=== PATIENT | male | born 1935 | race Caucasian/White ===

== ENCOUNTER → 2020-06-17 11:19 | Outpatient (BNVA) | payer MEDICARE, OTHER, SELFPAY | PROVIDERS: PCP Family Medicine; Visit Provider Specialist | DX: G56.01 Carpal tunnel syndrome, right upper limb (principal); G56.11 Other lesions of median nerve, right upper limb | CPT/HCPCS: 95908 ==

== ENCOUNTER → 2020-08-08 12:37 | Outpatient (BNVA) | payer MEDICARE, OTHER, SELFPAY | PROVIDERS: PCP Family Medicine; Visit Provider Orthopaedic Surgery | DX: Z01.812 Encounter for preprocedural laboratory examination (principal); Z20.828 Contact with and (suspected) exposure to other viral communicable diseases | CPT/HCPCS: 87635 ==

== ENCOUNTER 2020-08-13 05:51 | Day surgery (SDC) | payer MEDICARE, OTHER, SELFPAY ==
[2020-08-12 11:08] VITALS: BMI 25.7
[2020-08-13 06:19] VITALS: BP 132/73; PULSE 69; RESP 16; TEMP 36.6; O2SAT 98
[2020-08-13 06:45] LABS: Glucose Point of Care 130 mg/dL (70-110)
--- NOTE | 2020-08-13 06:55 | W.PM.OPSUD ---
Surgery/Procedure H&P Update DATE OF PROCEDURE: August 13, 2020 PREOP DIAGNOSIS: Right carpal tunnel syndrome PLANNED PROCEDURE: Operation Date: 08/13/20 07:00 Proposed Procedures p right Carpal Tunnel Release [id number] g56.01(Right) - Raul Zaidi MD
--- NOTE | 2020-08-13 06:56 | W.PM.OPSFHP ---
Same Day Surgery H&P Indication for Procedure/HPI DATE OF PROCEDURE: August 13, 2020 CHIEF COMPLAINT/INDICATIONFOR SURGICAL PROCEDURE: 85-year-old male with numbness and pain to right hand. EMG nerve conduction studies with severe carpal tunnel syndrome PREOP DIAGNOSIS: Right carpal tunnel syndrome PLANNED PROCEDRUE: Operation Date: 08/13/20 07:00 Proposed Procedures p right Carpal Tunnel Release 46520 g56.01(Right) - Raul Zaidi MD Medications/Allergies* Home Medications Medication Instructions Recorded Confirmed Type aspirin 81 mg tablet,delayed 81 mg PO DAILY 09/10/19 08/12/20 History release atorvastatin 10 mg tablet 10 mg PO DAILY 09/10/19 08/12/20 History fluticasone propionate 50 2 spray INTRANASAL DAILY PRN 09/10/19 08/12/20 History mcg/actuation nasal spray,suspension loratadine 10 mg tablet 10 mg PO DAILY PRN 09/10/19 08/12/20 History metformin 1,000 mg tablet 1,000 mg PO BID 09/10/19 08/12/20 History multivitamin 1 tab PO DAILY 09/10/19 08/12/20 History mupirocin 2 % topical ointment 1 applic TOPICAL BID PRN 09/10/19 08/12/20 History omeprazole 20 mg capsule,delayed 20 mg PO DAILY cap 03/11/20 08/12/20 History release sildenafil (pulm.hypertension) 20 60 mg PO .prn PRN tab 08/03/20 08/12/20 History mg tablet Allergies/Adverse Reactions Allergy/AdvReac Type Severity Reaction Status Date / Time diphenhydramine Allergy Unknown unknown Verified 08/03/20 10:04 [From Benadryl] Iodine and Iodide Containing Allergy Unknown hives Verified 08/03/20 10:04 Produc niacin Allergy Unknown unknown Verified 08/03/20 10:04 [From Niaspan Extended-Release] Pertinent History/Comorbid Conditions* Medical History (Updated 06/18/20 @ 18:07 by Liz Romero MD) Aortic regurgitation The most recent echocardiogram was done in February 2017. At that time he had features of aortic or sclerosis with a trace of aortic regurgitation Atypical chest pain Chronic kidney disease Hyperlipidemia Hypertension Ventricular arrhythmia Surgical History (Updated 09/10/19 @ 12:18 by Garret Forte MD) Hx of cataract surgery Family History (Updated 08/03/20 @ 10:11 by Sangita Silva RN) Diabetes Grandmother Dementia Mother Chronic kidney disease (CKD) Father Anesthesia complication Mother Lung disease Father Cancer Father Hypertension Denies family history of CAD (coronary artery disease) Clotting disorder Suicide Bleeding disorder Stroke Social History Smoking and tobacco status: never smoked Alcohol intake: current Alcohol intake frequency: holidays/special occasions only Pertinent Exam Findings alert, oriented x 3, clear to auscultation bilaterally, regular rate & rhythm and operative site marked Recommendations Surgery/Procedure today Coding Level of Care Code Acute Packing Machine Tender for Eliazar Desai
[2020-08-13] MEDS: sodium chloride 0.9% 1,000 ML 30 ML IV (07:00)
--- NOTE | 2020-08-13 07:02 | ANES.PREANE2 ---
Pre-Anesthetic Assessment Pre-Anesthetic Assessment: Height/Weight: Height 1.65 m Weight 70.307 kg Temp Pulse Resp BP Pulse Ox 97.9 F 69 16 132/73 98 08/13/20 06:19 08/13/20 06:19 08/13/20 06:19 08/13/20 06:19 08/13/20 06:19 Preop Diagnosis: Right carpal tunnel syndrome Proposed Procedure: Operation Date: 08/13/20 07:00 Proposed Procedures p right Carpal Tunnel Release [id number] g56.01(Right) - Raul Zaidi MD Was Beta Vick taken within 24 hours: Yes Last intake: Intake Last Liquid Date 08/12/20 Last Liquid Time 22:00 Last Solid Date 08/12/20 Last Solid Time 18:00 Social: Social History: Alcohol and No tobacco Exam: Pre-Anes Outpt Exam: alert, oriented x 3, clear to auscultation bilaterally and regular rate & rhythm Airway: Submandibular: WNL Cervical ROM: WNL MP: 1 Dentition: Partials Additional comments: poor dentition Pulmonary: Pulmonary: None reported CV/HEM: CV/HEM: Arrythmia and HTN Comments: aortic regurgitation, patient denies chest pain, Dr. carrillo visited recently : : Chronic renal Insufficiency Hepatic: Hepatic: None reported GI: GI: GERD (controlled) Metabolic: Metabolic: DM (type II metformin controlled ) and Hyperlipidemia Musc/skel: Musc/skel: Lower Back Pain and OA/DJD Anesthetic Plan: ASA status: 3 Anesthesia: MAC and Regional (specify below) Risk of > 500 ml blood loss (7ml/kg in children): No PFSH Anesthesia PFSH: Medical History Aortic regurgitation The most recent echocardiogram was done in February 2017. At that time he had features of aortic or sclerosis with a trace of aortic regurgitation Atypical chest pain Chronic kidney disease Hyperlipidemia Hypertension Ventricular arrhythmia Surgical History Hx of cataract surgery Family History Mother Anesthesia complication Dementia Father Cancer Chronic kidney disease (CKD) Lung disease Grandmother Diabetes Other Hypertension Denies family history of CAD (coronary artery disease) Clotting disorder Suicide Bleeding disorder Stroke Social History Smoking and tobacco status: never smoked Alcohol intake: current Alcohol intake frequency: holidays/special occasions only Data Anesthesia Other Labs: Laboratory Results - last 48 hr 08/13/20 06:42 POC Glucose 130 H Cardiac Studies: No Data to Display
[2020-08-13 08:04] VITALS: BP 104/61; PULSE 67; RESP 16; TEMP 36.3; O2SAT 95
--- NOTE | 2020-08-13 08:05 | P.OP_ITS ---
Operative Report Date of procedure: August 13, 2020 Pre-op Diagnosis: Right carpal tunnel syndrome Post-op diagnosis: same Post-op Findings: Same Procedure Done: Right carpal tunnel release Surgeon: Raul Zaidi Anesthesia: Local (Brittaney block) Estimated blood loss (mL): 2 Tourniquet time (min): 23 Complications: None Condition: stable Procedure: Patient was taken to the operating room and anesthesia provided by the anesthesia service. She was prepped and draped with the arm exposed. A timeout was performed. A 3 cm long incision was made in line with the fourth ray from the distal edge of the carpal tunnel extending proximally. The subcutaneous fat and palmar fascia was divided with a scalpel blade. Under loupe magnification the ulnar neurovascular bundle was identified distally. A hemostat could be passed under the transverse carpal ligament allowing the distal 25% to be divided. A slotted guide was then passed beneath the transverse carpal ligament and the middle 50% divided. Blunt scissors were then passed over the guide freeing the proximal ligament. The tourniquet was deflated. Hemostasis provided with electrocautery. Wound edges were infiltrat ed with 10 cc of a half percent Marcaine solution. Skin edges were reapproximated with 3-0 Prolene. Sterile dressings were applied. The patient was taken to the recovery room in stable condition
--- NOTE | 2020-08-13 08:06 | ANE.PACU2 ---
Inpatient post-anesthesia follow up: Airway intact: Yes Vital signs: Temperature 97.4 F Pulse Rate 67 Respiratory Rate 16 Blood Pressure 104/61 Pulse Oximetry 95 Oxygen Delivery Me thod Room Air Oxygen Flow Rate Fraction of Inspir ed Oxygen Hydration adequate: Yes Nausea and vomiting: No Pain level: 1 Mental status: Baseline
[2020-08-13 08:22] VITALS: BP 113/65; PULSE 67; RESP 16; O2SAT 97
== END 2020-08-13 08:33 | disposition home or self-care (01) ==
PROVIDERS: PCP Family Medicine; Visit Provider Orthopaedic Surgery
PROC: (CPT 64721; principal; 2020-08-13 07:00)
DX: G56.01 Carpal tunnel syndrome, right upper limb (principal); Z79.82 Long term (current) use of aspirin; Z79.84 Long term (current) use of oral hypoglycemic drugs; E78.5 Hyperlipidemia, unspecified; I12.9 Hypertensive chronic kidney disease with stage 1 through stage 4 chronic kidney disease, or unspecified chronic kidney disease; N18.9 Chronic kidney disease, unspecified; K21.9 Gastro-esophageal reflux disease without esophagitis; M19.90 Unspecified osteoarthritis, unspecified site
CPT/HCPCS: 64721; 12345; 36416; 82962; J0690; J2704; J3010; J3490; J7030

== ENCOUNTER → 2022-06-14 12:47 | Outpatient (BNVA) | payer MEDICARE, OTHER, SELFPAY | PROVIDERS: PCP Family Medicine; Referring Provider Family Medicine; Visit Provider Specialist | DX: G56.11 Other lesions of median nerve, right upper limb (principal); G56.21 Lesion of ulnar nerve, right upper limb | CPT/HCPCS: 95908; 95910 ==

== ENCOUNTER → 2022-07-12 11:02 | Outpatient (BNVA) | payer MEDICARE, OTHER, SELFPAY | PROVIDERS: PCP Family Medicine; Referring Provider Family Medicine; Visit Provider Orthopaedic Surgery | DX: R20.0 Anesthesia of skin (principal); R20.2 Paresthesia of skin | CPT/HCPCS: 99213 ==

== ENCOUNTER → 2022-11-03 15:21 | Outpatient (BNVA) | payer MEDICARE, OTHER, SELFPAY | PROVIDERS: PCP Family Medicine; Visit Provider Internal Medicine Cardiovascular Disease | DX: I35.0 Nonrheumatic aortic (valve) stenosis (principal); I49.8 Other specified cardiac arrhythmias; I12.9 Hypertensive chronic kidney disease with stage 1 through stage 4 chronic kidney disease, or unspecified chronic kidney disease; N18.30 Chronic kidney disease, stage 3 unspecified; E78.2 Mixed hyperlipidemia | CPT/HCPCS: 99214 ==

== ENCOUNTER → 2022-11-21 13:11 | Outpatient (BNVA) | payer MEDICARE, OTHER, SELFPAY | PROVIDERS: PCP Family Medicine; Visit Provider Podiatrist Foot & Ankle Surgery | DX: M19.071 Primary osteoarthritis, right ankle and foot (principal); M25.371 Other instability, right ankle | CPT/HCPCS: 73610; 99204 ==

== ENCOUNTER 2022-11-30 13:39 | Outpatient (CLI) | payer MEDICARE, OTHER, SELFPAY ==
--- NOTE | 2022-11-30 13:45 | USCV_ITS ---
Salazar Mejia Age: 87 Gender: M : 1935 Exam Date: 11/30/2022 14:21 Ordering Phys: Garret Forte MD ([email or web address]) Technologist: Stevenson Christiansen Exam Location: [facility] [place] Indication: AO steonsis BP: 133 / 73 HR: 72 Rhythm: Sinus Technical Quality: Adequate MEASUREMENTS (Male / Female) Normal Values 2D ECHO LVOT Diameter 2.0 cm LV Ejection Fraction MOD 2C 63.1 % LV Ejection Fraction 2C AL 68.1 % LA Diameter 3.1 cm LA Width 3.4 cm LA Height 5.5 cm RA Width 3.2 cm RA Height 4.8 cm Aorta at Sinotubular Diameter 3.2 cm IVC Diameter 1.3 cm M-MODE Aortic Annulus Diameter 2.9 cm LA Ao Ratio MM 1.1 MV E Point Septal Separation 0.4 cm DOPPLER AV Peak Velocity 217.3 cm/s LVOT Peak Velocity 101.0 cm/s AV Area Cont Eq vti 1.4 cm squared AV Area Cont Eq pk 1.5 cm squared MV Peak Velocity 163.0 cm/s MV Area PHT 4.4 cm squared Mitral E to A Ratio 0.5 MV E' Velocity 26.5 cm/s Mitral E to MV E' Ratio 6.3 Mitral E to LV E' Lateral Ratio 4.5 Mitral E to LV E' Septal Ratio 10.0 TR Peak Velocity 252.2 cm/s TR Peak Gradient 25.4 mmHg TR Mean Velocity 194.0 cm/s TR Mean Gradient 16.0 mmHg TR Velocity Time Integral 73.1 cm Right Atrial Pressure 3.0 mmHg Pulmonary Artery Systolic Pressu 28.4 mmHg PV Peak Velocity 113.0 cm/s RV Acceleration Time 0.1 s RV Ejection Time 0.3 s RV AcT/ET 0.4 FINDINGS Left Ventricle Normal left ventricular size and systolic function, EF 64 %. No regional wall motion abnormalities. Grade I/IV diastolic dysfunction (abnormal relaxation filling pattern), normal to mildly elevated filling pressures. Right Ventricle The right ventricle is normal in size and function. Right Atrium The right atrium is normal in size. Left Atrium Mildly increased left atrial size. Mitral Valve Thickened mitral valve. Mild mitral annular calcification. Aortic Valve Moderate aortic valve calcification. Trace aortic valve regurgitation. Moderate low gradient aortic valve stenosis, mean gradient 9.8 mmHg, BERNIE 1.4 cm squared. Tricuspid Valve Mild tricuspid valve regurgitation. Estimated pulmonary artery peak systolic pressure 32 mmHg Pulmonic Valve No gross abnormalities noted Pericardium Normal pericardium without effusion. Aorta Normal ascending aorta dimension. IVC The inferior vena cava appears normal. CONCLUSIONS Moderate aortic valve calcification. Trace aortic valve regurgitation. Moderate low gradient aortic valve stenosis, mean gradient 9.8 mmHg, BERNIE 1.4 cm squared. Normal left ventricular size and systolic function, EF 64 %. No regional wall motion abnormalities. Grade I/IV diastolic dysfunction (abnormal relaxation filling pattern), normal to mildly elevated filling pressures. Thickened mitral valve. Mild mitral annular calcification. Mildly increased left atrial size. Mild tricuspid valve regurgitation. Estimated pulmonary artery peak systolic pressure 32 mmHg. Compared to the study from 04/01/2020, there is some worsening of aortic valve stenosis, the valve area decreased from 2.2 cm squared to 1.[address] Garret Forte MD [facility] (Electronically Signed) Final Date: 07 Dec 2022 09:36 S
== END 2022-11-30 13:40 | disposition home or self-care (01) ==
LOC: RAD 13:45
PROVIDERS: PCP Family Medicine; Visit Provider Internal Medicine Cardiovascular Disease
DX: R06.09 Other forms of dyspnea (principal); I70.0 Atherosclerosis of aorta; I35.0 Nonrheumatic aortic (valve) stenosis; I05.9 Rheumatic mitral valve disease, unspecified; I07.1 Rheumatic tricuspid insufficiency
CPT/HCPCS: 93306

== ENCOUNTER → 2023-02-20 12:47 | Outpatient (BNVA) | payer MEDICARE, OTHER, SELFPAY | PROVIDERS: PCP Family Medicine; Visit Provider Podiatrist Foot & Ankle Surgery | DX: M25.371 Other instability, right ankle (principal); M19.071 Primary osteoarthritis, right ankle and foot | CPT/HCPCS: 99213 ==

== ENCOUNTER → 2023-04-24 13:52 | Outpatient (BNVA) | payer MEDICARE, OTHER, SELFPAY | PROVIDERS: PCP Family Medicine; Visit Provider Internal Medicine Cardiovascular Disease | DX: I49.8 Other specified cardiac arrhythmias (principal); I35.0 Nonrheumatic aortic (valve) stenosis; I10 Essential (primary) hypertension; E78.2 Mixed hyperlipidemia | CPT/HCPCS: 99214 ==

== ENCOUNTER → 2023-05-22 12:50 | Outpatient (BNVA) | payer MEDICARE, OTHER, SELFPAY | PROVIDERS: PCP Family Medicine; Visit Provider Podiatrist Foot & Ankle Surgery | DX: M25.371 Other instability, right ankle; M19.071 Primary osteoarthritis, right ankle and foot | CPT/HCPCS: 20605; 20610; J1100; J3301; J3490 ==

== ENCOUNTER 2023-08-29 07:32 | Outpatient (CLI) | payer MEDICARE, OTHER, SELFPAY ==
--- NOTE | 2023-08-29 07:35 | CT_ITS ---
WS: [id number] CT ABDOMEN AND PELVIS NONCONTRAST HISTORY: LLQ PAIN, genitourinary TECHNIQUE: Imaging performed through the abdomen and pelvis. Coronal and sagittal reformats are submi tted. All CT scans at [facility] use at least one of these dose optimization techniques: auto mated exposure control; mA and/or kV adjustment per patient size (includes targeted exams where dose is matched to clinical indication); or iterative reconstruction. DLP: 313.41 mGy.cm COMPARISON: None available. Lower thorax: Mild bronchial thickening and groundglass attenuation at the LEFT lung base. No dense c onsolidation. Heart is moderately enlarged. Liver: Liver is enlarged with mild coarse echotexture. No bile duct dilatation. Gallbladder: Normal gallbladder. No pericholecystic fluid or cholelithiasis. No gallbladder wall thic kening. Pancreas: Normal size and attenuation. Normal pancreatic duct. No pancreatitis or mass. Spleen: Normal. Adrenal glands: Normal. No mass. Right kidney: Mild perinephric stranding with no obstruction. There is a low-attenuation mass in the upper pole of the kidney with low Hounsfield units. This is probably a cyst measuring 3.0 x 3.3 cm. C annot characterize completely without IV contrast. There is no ureteral obstruction. Left kidney: Mild perinephric stranding with no obstruction. Aorta: Mild atherosclerosis abdominal aorta with no aneurysm. No free fluid, intraperitoneal air or significant lymphadenopathy. GI tract: Stomach is not distended. There are foci of increased density within the stomach and the du odenal C-loop which are probably medicinal in etiology. No small bowel obstruction. There is extensiv e colonic diverticulosis. Diverticular burden is much more significant in the descending and sigmoid colon. There is circumferential wall thickening and narrowing of the lumen. There is one very focal m inimal area of increased pericolonic stranding which may represent a mild acute diverticulitis involv ing the descending colon. Best seen on image 64 of series 7. The appendix is normal. Abdominal wall: Negative. No hernia. Pelvis: No free fluid in the pelvis. Marked enlargement of the prostate. Prostate measures 5.0 x 5.8 x 7.8 cm encroaching into the urinary bladder. Osseous structures: Moderate degenerative spondylitic changes throughout the lumbar spine. Moderate n arrowing of the hip joints. Slightly greater narrowing of the LEFT hip joint. IMPRESSION: 1. There is extensive colonic diverticulosis. Most significant burden in the descending and sigmoid colon with wall thickening and narrowing of the lumen. There is a single very minimal area of strandi ng in the descending colon which may represent a mild acute diverticulitis. Consider evaluation by co lonoscopy. Neoplasm cannot be excluded on this examination. 2. No renal obstruction. 3. RIGHT renal cyst. 4. Very mild bronchial wall thickening at the LEFT lung base and mild cardiomegaly. 5. Prostate enlargement.
== END 2023-08-29 07:33 | disposition home or self-care (01) ==
LOC: RAD 07:33
PROVIDERS: PCP Family Medicine; Visit Provider Family Medicine
DX: K57.30 Diverticulosis of large intestine without perforation or abscess without bleeding (principal); R39.9 Unspecified symptoms and signs involving the genitourinary system; R10.32 Left lower quadrant pain; N28.1 Cyst of kidney, acquired
CPT/HCPCS: 74176

== ENCOUNTER → 2023-09-12 14:20 | Outpatient (BNVA) | payer MEDICARE, OTHER, SELFPAY | PROVIDERS: PCP Family Medicine; Visit Provider Podiatrist Foot & Ankle Surgery | DX: M25.371 Other instability, right ankle (principal); M19.071 Primary osteoarthritis, right ankle and foot | CPT/HCPCS: 99213 ==

== ENCOUNTER → 2023-11-14 14:34 | Outpatient (BNVA) | payer MEDICARE, OTHER, SELFPAY | PROVIDERS: PCP Family Medicine; Visit Provider Internal Medicine Cardiovascular Disease | DX: R07.9 Chest pain, unspecified (principal); I35.0 Nonrheumatic aortic (valve) stenosis; E78.2 Mixed hyperlipidemia; I10 Essential (primary) hypertension; I49.9 Cardiac arrhythmia, unspecified; I48.91 Unspecified atrial fibrillation; I48.92 Unspecified atrial flutter; R00.1 Bradycardia, unspecified | CPT/HCPCS: 93005; 99214 ==

== ENCOUNTER → 2024-03-12 13:05 | Outpatient (BNVA) | payer MEDICARE, OTHER, SELFPAY | PROVIDERS: PCP Family Medicine; Visit Provider Podiatrist Foot & Ankle Surgery | DX: M25.371 Other instability, right ankle (principal); M25.571 Pain in right ankle and joints of right foot; G89.29 Other chronic pain | CPT/HCPCS: 99213 ==

== ENCOUNTER → 2024-06-25 08:45 | Outpatient (BNVA) | payer MEDICARE, OTHER, SELFPAY | PROVIDERS: PCP Family Medicine; Visit Provider Nurse Practitioner Family | DX: E78.2 Mixed hyperlipidemia (principal); I10 Essential (primary) hypertension; I35.0 Nonrheumatic aortic (valve) stenosis; I49.9 Cardiac arrhythmia, unspecified | CPT/HCPCS: 99214 ==